=== PATIENT | female | born 1950 | race Caucasian/White ===

== ENCOUNTER → 2018-07-17 | Outpatient (CLI) | payer MEDICARE, OTHER ==
--- NOTE | 2018-07-17 12:29 | RAD ---
EXAM: Chest, 2 views. HISTORY: Wheezing and cough. COMPARISON: None. FINDINGS: 2 views the chest are obtained. There is mild diffuse increased interstitial opacity. There is a small right pleural effusion. There is a stable prominent cardiac silhouette. There is no pneumothorax. There are few calcified granulomas. There is a gastric lap band. IMPRESSION: 1. Suspected mild diffuse interstitial infiltrate. This may be superimposed on chronic interstitial changes. 2. Suspected small right pleural effusion. Electronically signed by: Sima Elizabeth MD (07/17/2018 12:26 PM) [place] [id number]
== END | disposition home or self-care (01) ==
LOC: DXRAD 12:04
PROVIDERS: ATTEND Physician Assistant Medical
DX: J90 Pleural effusion, not elsewhere classified (principal); J84.10 Pulmonary fibrosis, unspecified
CPT/HCPCS: 71046

== ENCOUNTER → 2018-07-28 | Outpatient (CLI) | payer MEDICARE, OTHER ==
--- NOTE | 2018-07-28 11:00 | RAD ---
PQRS Compliance Statement: One or more of the following individualized dose reduction techniques were utilized for this examination: 1. Automated exposure control 2. Adjustment of the mA and/or kV according to patient size 3. Use of iterative reconstruction technique CT chest without contrast 07/28/2018 INDICATION: Abnormal chest x-ray. COMPARISON: Chest radiograph July 17, 2018 , CT abdomen/pelvis June 05, 2015 TECHNIQUE: Multiple axial CT images of the chest were obtained without intravenous contrast. Coronal and sagittal reformats are provided. FINDINGS: There is a inferior left thyroid nodule with substernal extension measuring 2.1 x 1.4 cm. Left axillary lymph node measures 11 mm by short axis, borderline enlarged. Right paratracheal lymph node measures 8 mm by short axis (series 2, image 23). Calcified precarinal lymph node is identified. There is a subcarinal lymph node measuring 9 mm by short axis. Evaluation of hilar lymphadenopathy is limited by lack of intravenous contrast. Heart size borderline enlarged. There is no significant pericardial effusion. Thoracic aorta is normal in course and caliber. There is an 8 mm solid noncalcified pulmonary nodule in the left upper lobe (series 2, image 19). There is a 6 mm solid noncalcified pulmonary nodule in the left upper lobe (series 2, image 29). Focal wedge-shaped consolidative changes are identified in the inferior lingula. In the posterior left lower lobe medially, there is a 9 mm solid noncalcified pulmonary nodule (series 2, image 43). There is a 9 mm solid noncalcified pulmonary nodule in the right upper lobe (series 2, image 33). In the lateral right costophrenic angle, there is a 20 x 14 mm nodular opacity. There is bronchial wall thickening compatible with bronchitis. No pleural effusions. There is subsegmental atelectasis at the left lung base. Mild coronary vascular congestion. No pneumothorax. Lap band postoperative changes are identified in the upper abdomen. There is a cystic lesion suspected to be within the gastrohepatic ligament which may arise from the submucosal aspect of the lesser curvature of the stomach measuring 4.3 x 3.0 cm. Alternatively, this may be a peripancreatic cystic lesion partially profiled. Spleen is enlarged measuring 15.7 cm in AP dimension. IMPRESSION: 1. Multifocal solid noncalcified pulmonary nodules measuring up to 20 x 14 mm within the right lower lobe. Further evaluation with PET/CT is recommended versus 3 month follow-up chest CT. 2. There is a cystic lesion suspected to be along the lesser curvature of the stomach which may arise from the submucosal stomach or pancreas. Further evaluation with contrast-enhanced CT abdomen/pelvis is recommended. Alternatively, these findings may be further assessed with PET/CT. Prior CT abdomen/pelvis from June 05, 2015 demonstrates a pancreatic pseudocyst. Findings appear different compared to prior examination, however may reflect similar etiology. 3. Borderline left axillary lymph node measuring 10 mm by short axis. 4. Bronchial wall thickening is compatible with bronchitis. Limited evaluation for hilar lymphadenopathy due to the lack of intravenous contrast. 5. Left thyroid nodule may be further assessed with thyroid ultrasound. Electronically signed by: Louisa Simeon MD (07/28/2018 10:57 AM) [id number]
== END | disposition home or self-care (01) ==
LOC: CT 09:37
PROVIDERS: ATTEND Physician Assistant Medical
DX: J98.11 Atelectasis (principal); R91.8 Other nonspecific abnormal finding of lung field; E04.1 Nontoxic single thyroid nodule; R16.1 Splenomegaly, not elsewhere classified
CPT/HCPCS: 71250